=== PATIENT | male | born 1955 | race Caucasian/White ===

== ENCOUNTER 2023-08-16 15:05 | Emergency (ER) | payer MEDICARE, SELFPAY ==
[2023-08-16 15:10] VITALS: BP 182/96; PULSE 59; RESP 20; TEMP 37; O2SAT 97; BMI 26.3
--- NOTE | 2023-08-16 15:19 | CT_ITS ---
The [address] [address] Patient Name: MARLON LIPSCOMB MRN: [id number] date: 1955 Sex: M Assigned Patient Location: ED.MAIN Current Patient Location: Accession/Order Number: [id number] Exam Date: 08/16/2023 15:53 Report Date: 08/16/2023 16:29 At the request of: MARCO A ESPINOZA Procedure: CT abdomen pelvis w con EXAM: CT abdomen pelvis w con HISTORY: LLQ abd pain COMPARISON: None. TECHNIQUE: Axial CT images were obtained of the abdomen and pelvis with intravenous contrast. Delayed images were obtained through the level of the urinary bladder. Multiplanar reconstructions were performed. ABDOMEN/PELVIS FINDINGS: Lower Chest: Unremarkable. Liver: Normal enhancement and contour. Biliary/Gallbladder: Unremarkable. Pancreas: Unremarkable. Spleen: Unremarkable. Adrenal Glands: Unremarkable. Kidneys: A few small cystic lesions are present in the kidneys bilaterally. Gastrointestinal/Peritoneum: No acute abnormality. The appendix is unremarkable. No free air or free fluid. Vascular: Mild scattered atherosclerotic calcifications are present. Lymph Nodes: No enlarged lymph nodes by CT size criteria. Pelvic Organs: The prostate gland is significantly enlarged and causing mass effect on the base of bladder. Bladder: A bladder diverticulum is noted arising from the left posterior lateral margin of the urinary bladder. Bones: No acute osseous abnormality. Mild multilevel degenerative changes are present in the visualized spine. There is a slight retrolisthesis of L2 on L3. Soft tissues: There is mild hazy fat stranding within a fat-containing left spigelian hernia which measures 5.0 x 1.9 cm. There is a complex anterior abdominal wall hernia containing fat measuring 8.6 x 4.4 cm. A second smaller site of fat-containing hernias present at the midline of the abdomen, likely incisional a related. CT/CT abdomen pelvis w con IMPRESSION: 1. Mild hazy fat stranding present at the site of a left abdominal wall fat-containing spigelian hernia, possibly due to mild edema or ischemia. 2. Additional complex fat-containing hernia at the right midline anterior abdominal wall without acute inflammatory changes. 3. Tiny fat-containing hernia at the midline of the anterior abdominal wall, likely incisional. 4. Significant prostatomegaly. 5. Bladder diverticula. Electronically authenticated by: SYLVAIN PAGE Date: 08/16/2023 16:29
--- NOTE | 2023-08-16 15:20 | ED_ITS ---
HPI - Abdominal Pain General Chief Complaint: Abdominal Pain Stated Complaint: ABDOMINAL PAIN Time Seen by Provider: 08/16/23 15:10 Mode of arrival: walk-in Limitations: no limitations History of Present Illness HPI narrative: 67-year-old male presents for left lower quadrant abdominal pain that started about noon, just over three hours ago. He has a history of diverticulitis come in the 1980s he had colon resection for that issue. No constipation or diarrhea or vomiting. No dysuria or hematuria. The pain is moderate and continuous. Related Data Home Medications Medication Instructions Recorded Confirmed amlodipine 10 mg-benazepril 40 mg 1 cap PO DAILY 08/16/23 08/16/23 capsule atorvastatin 80 mg tablet 80 mg PO DAILY 08/16/23 08/16/23 carvedilol 25 mg tablet 25 mg PO DAILY 08/16/23 08/16/23 clopidogrel 75 mg tablet 75 mg PO DAILY 08/16/23 08/16/23 finasteride 5 mg tablet 5 mg PO DAILY 08/16/23 08/16/23 Previous Rx's Medication Instructions Recorded acetaminophen 300 mg-codeine 30 mg 1 tab PO Q6H PRN pain #20 tabs 08/16/23 tablet Allergies Allergy/AdvReac Type Severity Reaction Status Date / Time No Known Drug Allergies Allergy Verified 08/16/23 15:10 Review of Systems ROS Narrative A ten point review of systems is negative except as noted above. Exam Narrative Exam Narrative: Nurses note and vital signs reviewed and patient is not hypoxic. General: The patient appears well and in no apparent distress. Patient is resting comfortably on cart. Skin: Warm, dry, no pallor noted. There is no rash noted. Head: Normocephalic, atraumatic Eye: Normal conjunctiva, no drainage Ears, Nose, Mouth, and Throat: oral mucosa is moist. Nares patent. Cardiovascular: Regular Rate and Rhythm Respiratory: Patient is in no distress, no accessory muscle use, lungs are clear to auscultation, no wheezing, rales or rhonchi Back: non-tender GI: tenderness only in the left lower quadrant. No mass or rebound. Musculoskeletal: The patient has no evidence of calf tenderness, no pitting edema, symmetrical pulses noted bilaterally Neurological: A&O, normal speech Psychiatric: Cooperative Constitutional Vital Signs, click to edit/add: Last Vital Signs Temp 98.3 F 08/16/23 16:42 Pulse 58 L 08/16/23 16:42 Resp 16 08/16/23 16:42 BP 149/88 H 08/16/23 16:42 Pulse Ox 97 08/16/23 16:42 O2 Del Method Room Air 08/16/23 16:42 Course Vital Signs Vital signs: Vital Signs Temperature 98.6 F 08/16/23 15:10 Pulse Rate 59 L 08/16/23 15:10 Respiratory Rate 20 08/16/23 15:10 Blood Pressure 182/96 H 08/16/23 15:10 Pulse Oximetry 97 08/16/23 15:10 Oxygen Delivery Method Room Air 08/16/23 15:10 Temperature 98.3 F 08/16/23 16:42 Pulse Rate 58 L 08/16/23 16:42 Respiratory Rate 16 08/16/23 16:42 Blood Pressure 149/88 H 08/16/23 16:42 Pulse Oximetry 97 08/16/23 16:42 Oxygen Delivery Method Room Air 08/16/23 16:42 MDM - Abdominal Pain MDM Narrative Medical decision making narrative: Spigelian hernia is identified. I've no clinical suspicion of incarceration or strangulation. Lactic acid is normal. The patient is feeling improved and he'll be discharged home and will follow-up with general surgery. Treatment diagnosis and follow-up were discussed with the patient and his . Differential Diagnosis Differential diagnosis: Likely abdominal pain, calculus of kidney, constipation, diverticulitis, gastroenteritis and small bowel obstruction Lab Data Attestation: I reviewed the patient's lab results. Labs: Lab Results 08/16/23 08/16/23 Range/Units 15:15 15:35 WBC 10.0 (4.0-11.0) 10^3/uL RBC 5.23 (4.70-6.10) 10^6/uL Hgb 15.8 (14.0-18.0) g/dL Hct 47.0 (42.0-54.0) % MCV 89.9 (80.0-94.0) fL MCH 30.2 (25.9-34.0) pg MCHC 33.6 (29.9-35.2) g/dL RDW 12.4 (11.0-15.0) % Plt Count 216 (150-450) 10^3/uL MPV 10.7 (9.5-13.5) fL Neut % (Auto) 79.2 H (43.0-75.0) % Lymph % (Auto) 11.2 L (20.5-60.0) % Russell % (Auto) 5.9 (1.7-12.0) % Eos % (Auto) 2.8 (0.9-7.0) % Baso % (Auto) 0.5 (0.2-2.0) % Neut # (Auto) 7.9 H (1.4-6.5) 10^3/uL Lymph # (Auto) 1.1 L (1.2-3.8) 10^3/uL Russell # (Auto) 0.6 (0.3-0.8) 10^3/uL Eos # (Auto) 0.3 (0.0-0.7) 10^3/uL Baso # (Auto) 0.1 (0.0-0.1) 10^3/uL Abs Immat Gran (auto) 0.04 H (0.00-0.03) 10^3/uL Imm/Tot Granulo (auto) 0.4 (0.0-0.5) % Sodium 139 (136-145) mmol/L Potassium 3.7 (3.5-5.1) mmol/L Chloride 101 (98-107) mmol/L Carbon Dioxide 32.3 H (21.0-32.0) mmol/L Anion Gap 9.4 BUN 13.0 (7.0-18.0) mg/dL Creatinine 0.72 (0.70-1.30) mg/dL Est GFR ( Amer) >60 (>=60) Est GFR (Non-Af Amer) >60 (>=60) BUN/Creatinine Ratio 18.1 Glucose 127 H (74-106) mg/dL Lactate 0.8 (0.4-2.0) mmol/L Calcium 9.2 (8.5-10.1) mg/dL Urine Color Lt. yellow (YELLOW) Urine Clarity Clear (CLEAR) Urine pH 8.5 (5.0-9.0) Ur Specific [place] 1.015 (1.005-1.025) Urine Protein Negative (NEG/TRACE) mg/dL Urine Glucose (UA) Negative (NEGATIVE) mg/dL Urine Ketones Negative (NEGATIVE) mg/dL Urine Occult Blood Negative (NEGATIVE) Urine Nitrite Negative (NEGATIVE) Urine Bilirubin Negative (NEGATIVE) Urine Urobilinogen 0.2 (0.2-1.0) EU/dL Ur Leukocyte Esterase Negative (NEGATIVE) Urine RBC None seen (0-2) #/HPF Urine WBC None seen (NONE SEEN) #/HPF Ur Squamous Epith Cells None seen (NONE/RARE) #/LPF Urine Crystals None seen (None Seen) #/HPF Amorphous Sediment Moderate Urine Bacteria None seen (NONE SEEN) #/HPF Urine Casts None seen (NONE SEEN) #/LPF Urine Mucus None seen (NONE SEEN) Imaging Data CT scan - abdomen: Radiologist's impression: * Procedure: CT abdomen pelvis w conEXAM: CT abdomen pelvis w con HISTORY: LLQ abd painCOMPARISON: None.TECHNIQUE: Axial CT images were obtained of the abdomen and pelvis with intravenous contrast. Delayed images were obtained through the level of the urinary bladder. Multiplanar reconstructions were performed.ABDOMEN/PELVIS FINDINGS:Lower Chest: Unremarkable.Liver: Normal enhancement and contour.Biliary/Gallbladder: Unremarkable.Pancreas: Unremarkab le.Spleen: Unremarkable.Adrenal Glands: Unremarkable.Kidneys: A few small cystic lesions are present in the kidneys bilaterally.Gastrointestinal/Peritoneum: No acute abnormality. The appendix is unremarkable. No free air or free fluid.Vascular: Mild scattered atherosclerotic calcifications are present.Lymph Nodes: No enlarged lymph nodes by CT size criteria.Pelvic Organs: The prostate gland is significantly enlarged and causing mass effect on the base of bladder.Bladder: A bladder diverticulum is noted arising from the left posterior lateral margin of the urinary bladder.Bones: No acute osseous abnormality. Mild multilevel degenerative changes are present in the visualized spine. There is a slight retrolisthesis of L2 on L3.Soft tissues: There is mild hazy fat stranding within a fat-containing left spigelian hernia which measures 5.0 x 1.9 cm. There is a complex anterior abdominal wall hernia containing fat measuring 8.6 x 4.4 cm. A second smaller site of fat-containing hernias present at the midline of the abdomen, likely incisional a related.IMPRESSION:1. Mild hazy fat stranding present at the site of a left abdominal wall fat-containing spigelian hernia, possibly due to mild edema or ischemia.2. Additional complex fat-containing hernia at the right midline anterior abdominal wall without acute inflammatory changes.3. Tiny fat-containing hernia at the midline of the anterior abdominal wall, likely incisional.4. Significant prostatomegaly.5. Bladder diverticula.Electronically authenticated by: SYLVAIN PAGE Date: 08/16/2023 16:29 Discharge Plan Discharge Chief Complaint: Abdominal Pain Clinical Impression: Spigelian hernia Patient Disposition: Home, Self-Care Time of Disposition Decision: 17:11 Condition: Good Mode of Transportation: Private Vehicle Prescriptions / Home Meds: New acetaminophen-codeine 300-30 mg tablet 1 tab PO Q6H PRN (Reason: pain) Qty: 20 0RF No Action amlodipine-benazepril 10-40 mg capsule 1 cap PO DAILY atorvastatin 80 mg tablet 80 mg PO DAILY finasteride 5 mg tablet 5 mg PO DAILY carvedilol 25 mg tablet 25 mg PO DAILY clopidogrel 75 mg tablet 75 mg PO DAILY Instructions: Ventral Hernia (ED), Ventral Hernia Repair (DC) Stand Alone Forms: Portal Instructions Referrals: NEPTALI DOUGHERTY [Primary Care Provider] - 1 week
[2023-08-16 15:39] LABS: Anion Gap 9.4; BUN Creatinine Ratio 18.1; Calcium 9.2 mg/dL (8.5-10.1); Carbon Dioxide 32.3 mmol/L (21.0-32.0); Chloride 101 mmol/L (98-107); Estimated GFR (African America >60 (>=60); Estimated GFR (Non-African Ame >60 (>=60); Glucose 127 mg/dL (74-106); Potassium 3.7 mmol/L (3.5-5.1); Sodium 139 mmol/L (136-145)
[2023-08-16 15:45] LABS: Basophils Absolute Auto 0.1 10^3/uL (0.0-0.1); Basophils Percent Auto 0.5 % (0.2-2.0); Eosinophils Absolute Auto 0.3 10^3/uL (0.0-0.7); Eosinophils Percent Auto 2.8 % (0.9-7.0); Hemoglobin 15.8 g/dL (14.0-18.0); Immature Granulocytes Abs Auto 0.04 10^3/uL (0.00-0.03); Immature Granulocytes Pct Auto 0.4 % (0.0-0.5); Lymphocytes Absolute Auto 1.1 10^3/uL (1.2-3.8); Lymphocytes Percent Auto 11.2 % (20.5-60.0); Mean Corpuscular HGB Conc 33.6 g/dL (29.9-35.2); Mean Corpuscular Hemoglobin 30.2 pg (25.9-34.0); Mean Corpuscular Volume 89.9 fL (80.0-94.0); Mean Platelet Volume 10.7 fL (9.5-13.5); Monocytes Absolute Auto 0.6 10^3/uL (0.3-0.8); Monocytes Percent Auto 5.9 % (1.7-12.0); Neutrophils Absolute Auto 7.9 10^3/uL (1.4-6.5); Neutrophils Percent Auto 79.2 % (43.0-75.0); Platelet Count 216 10^3/uL (150-450); Red Blood Count 5.23 10^6/uL (4.70-6.10); Red Cell Distribution Width 12.4 % (11.0-15.0)
[2023-08-16 15:46] LABS: Bilirubin Urine NEGATIVE (NEGATIVE); Blood Urine NEGATIVE (NEGATIVE); Clarity Urine CLEAR (CLEAR); Color Urine LT. YELLOW (YELLOW); Glucose Urine UA NEGATIVE (NEGATIVE); Ketones Urine NEGATIVE (NEGATIVE); Leukocyte Esterase Urine NEGATIVE (NEGATIVE); Nitrite Urine NEGATIVE (NEGATIVE); Protein Urine NEGATIVE (NEG/TRACE); Specific Gravity Urine 1.015 (1.005-1.025); Urobilinogen Urine 0.2 EU/dL (0.2-1.0); pH Urine 8.5 (5.0-9.0)
[2023-08-16 15:58] LABS: Bacteria Urine NONE SEEN #/HPF (NONE SEEN); Crystals Seen? None Seen #/HPF (None Seen); Mucus Urine NONE SEEN (NONE SEEN); RBC Urine NONE SEEN #/HPF (0-2); Squamous Epithelial Cell Urine NONE SEEN #/LPF (NONE/RARE); WBC Urine NONE SEEN #/HPF (NONE SEEN)
[2023-08-16 15:59] LABS: Amorphous Sediment Urine MODERATE; Cast Seen? NONE SEEN #/LPF (NONE SEEN)
[2023-08-16 16:42] VITALS: BP 149/88; PULSE 58; RESP 16; TEMP 36.8; O2SAT 97
[2023-08-16 17:00] LABS: Lactate/Lactic Acid 0.8 mmol/L (0.4-2.0)
== END 2023-08-16 17:22 | disposition home or self-care (01) ==
PROVIDERS: Emergency Provider Emergency Medicine; PCP Internal Medicine
DX: K43.9 Ventral hernia without obstruction or gangrene (principal); Z90.49 Acquired absence of other specified parts of digestive tract; Z79.899 Other long term (current) drug therapy
CPT/HCPCS: 36415; 74177; 80048; 81001; 83605; 85025; 99285; Q9967